=== PATIENT | male | born 1950 | race Caucasian/White ===

== ENCOUNTER → 2017-10-31 | Outpatient (CLI) | payer OTHER | LOC: FIMAGING 08:38 | PROVIDERS: ATTEND Orthopaedic Surgery | DX: M17.11 Unilateral primary osteoarthritis, right knee (principal) ==

== ENCOUNTER 2017-11-10 06:12 | Inpatient (IN) | payer OTHER ==
--- NOTE | 2017-11-10 06:11 | PDHPUP ---
History & Physical Update H&P update statement: This history and physical update is based on an assessment of the patient which was completed after admission or registration (within 24 hours), but prior to the surgery/procedure. H&P update: H&P reviewed & patient examined, no change in patient's condition since H&P completed
[~2017-11-10 06:12] MED LIST: ROPIVACAINE 0.2% 80 MG, EPINEPHrine 0.2 MG, KETOROLAC TROMETHAMINE 30 MG in SYRINGE 0 ML IU ONE; TRANEXAMIC ACID 3,000 MG in NS (SYRINGE) 50 ML IRR ONE
[2017-11-10] MEDS ORDERED: ceFAZolin 2 GM/DEXTROSE 100 ML IV ONE (06:23)
[2017-11-10] MEDS ORDERED: ACETAMINOPHEN 325 MG TAB PO ONE (06:23)
[2017-11-10] MEDS ORDERED: FAMOTIDINE 20 MG TAB PO ONE (06:23)
[2017-11-10] MEDS ORDERED: DEXAMETHASONE 4 MG/ML VIAL IVP ONE (06:23)
[2017-11-10] MEDS ORDERED: LR 1,000 ML IV ONE ×2 (06:25→06:26)
[2017-11-10] MEDS ORDERED: fentaNYL 100 MCG/2 ML INJ ONE (06:49)
[2017-11-10] MEDS ORDERED: LIDOCAINE 2% 100 MG/5 ML SYR ONE (06:49)
[2017-11-10] MEDS ORDERED: MIDAZOLAM 2 MG/2 ML VIAL ONE (06:49)
[2017-11-10] MEDS ORDERED: PROPOFOL/EMULSION 500 MG/50 ML BOTTLE IV ONE (06:51)
[2017-11-10] MEDS ORDERED: TRANEXAMIC ACID 3,000 MG/50 ML BAG IRR ONE (06:57)
--- NOTE | 2017-11-10 06:59 | PDANEPAE ---
ANE History of Present Illness R knee DJD, here for R TKA ANE Past Medical History - Cardiovascular History Hx Hypertension: No Hx Arrhythmias: No Hx Chest Pain: No Hx Coronary Artery / Peripheral Vascular Disease: No Hx CHF / Valvular Disease: No Hx Palpitations: No Cardiovascular History Comment: Heart murmur as child - Pulmonary History Hx COPD: No Hx Asthma/Reactive Airway Disease: No Hx Recent Upper Respiratory Infection: No Hx Oxygen in Use at Home: No Hx Sleep Apnea: No Sleep Apnea Screening Result - Last Documented: Negative Pulmonary History Comment: smokes cigar but does not inhale - Neurologic History Hx Cerebrovascular Accident: No Hx Seizures: No Hx Dementia: No Neurologic History Comment: HX MIGRAINES - Endocrine History Hx Diabetes: No - Renal History Hx Renal Disorders: No - Liver History Hx Hepatic Disorders: No - Neurological & Psychiatric Hx Hx Neurological and Psychiatric Disorders: No - Cancer History Hx Cancer: Yes Cancer History Comment: left restoration Melanoma. stage 1V melanoma - Congenital Disorder History Hx Congenital Disorders: Yes Congenital History Comment: CANCER - GI History Hx Gastrointestinal Disorders: No - Other Health History Other Health History: NONE - Chronic Pain History Chronic Pain: Yes (RECONSTRUCTIVE ANKLE) - Surgical History Prior Surgeries: tonsillectomy, ankle surgery, knee lap, hernia repair in 6th grade, sentinal node biopsy. partial lobectomy ANE Review of Systems Review of Systems: - Exercise capacity METS (RN): 5 METS ANE Patient History - Allergies Allergies/Adverse Reactions: HAYFEVER Allergy (Mild, Uncoded 10/06/17 10:33) WATERY EYES - Home Medications Home Medications: Cholecalciferol Vit D3 [Vitamin D3 (*)] 3,000 units PO DAILY 04/29/15 [Last Taken 10/27/17] FEXOFENADINE HCL 180 mg PO HS 04/29/15 [Last Taken 11/09/17] Ibuprofen [Motrin (*)] 600 mg PO Q8 PRN 04/29/15 [Last Taken 11/03/17] Lovastatin 40 mg PO HS 04/29/15 [Last Taken 11/09/17] Cyanocobalamin (Vitamin B-12) [Vitamin B-12] 1,000 mcg PO DAILY 09/29/17 [Last Taken 10/27/17] Midrin 1 tab PO PRN PRN 09/29/17 [Last Taken 10/14/17] Celebrex 400 mg 11/10/17 [Last Taken 11/10/17 05:30] - NPO status NPO Since - Liquids (Date): 11/10/17 NPO Since - Liquids (Time): 05:00 NPO Since - Solids (Date): 11/09/17 NPO Since - Solids (Time): 21:00 - Smoking Hx Smoking Status: Never smoked - Family Anes Hx Family Hx Anesthesia Complications: Mother very nausea ANE Labs/Vital Signs - Vital Signs Blood Pressure: 113/74 Heart Rate: 58 Respiratory Rate: 14 O2 Sat (%): 94 Height: 182.88 cm Weight: 79.379 kg ANE Physical Exam - Airway Neck exam: FROM Mallampati Score: Class 2 Mouth exam: normal dental/mouth exam - Pulmonary Pulmonary: no respiratory distress - Cardiovascular Cardiovascular: regular rate and rhythym - ASA Status ASA Status: II ANE Anesthesia Plan Anesthesia Plan: GA with mask, spinal
[2017-11-10] MEDS ORDERED: BUPIVACAINE 0.75% 10 ML SDV ONE (07:07)
[2017-11-10] MEDS: VANCOMYCIN 1 GM VIAL ONE ×2 (08:02→08:21)
[2017-11-10] MEDS ORDERED: NALOXONE HCL 0.4 MG/ML INJ IVP PRN (08:05)
[2017-11-10] MEDS ORDERED: HYDROmorphONE/DILAUDID 2 MG/ML INJ IVP PRN (08:05)
[2017-11-10] MEDS ORDERED: LR 500 ML IV PRN (08:05)
[2017-11-10] MEDS ORDERED: PROMETHAZINE HCL 25 MG/ML INJ IVP PRN ×2 (08:05→08:40)
[2017-11-10] MEDS ORDERED: oxyCODONE IR 5 MG TAB PO PRN (08:05)
[2017-11-10] MEDS ORDERED: fentaNYL 100 MCG/2 ML INJ IVP PRN (08:05)
[2017-11-10] MEDS ORDERED: ONDANSETRON 4 MG/2 ML VIAL IVP PRN ×2 (08:05→08:40)
[2017-11-10] MEDS ORDERED: ROPIVACAINE HCL 150 MG/30 ML INJ ONE (08:20)
[2017-11-10] MEDS ORDERED: CYCLOBENZAPRINE 10 MG TAB PO PRN (08:40)
[2017-11-10] MEDS ORDERED: LACTULOSE 20 GM/30 ML UDCUP PO PRN (08:40)
[2017-11-10] MEDS ORDERED: POLYETHYLENE GLYCOL 3350 17 GM PKT PO PRN (08:40)
[2017-11-10] MEDS ORDERED: diphenhydrAMINE 25 MG CAP PO PRN (08:40)
[2017-11-10] MEDS ORDERED: DIPHENOXYLATE/ATROPINE LOMOTIL 1 TAB PO PRN (08:40)
[2017-11-10] MEDS ORDERED: BISACODYL 10 MG SUPP PR PRN (08:40)
[2017-11-10] MEDS ORDERED: MAGNESIUM HYDROXIDE 30 ML UDCUP PO PRN (08:40)
[2017-11-10] MEDS ORDERED: PROMETHAZINE HCL 25 MG SUPPR PR PRN (08:40)
[2017-11-10] MEDS ORDERED: TEMAZEPAM 15 MG CAP PO PRN (08:40)
[2017-11-10] MEDS ORDERED: ONDANSETRON DISINTEGRATING 4 MG TAB PO PRN (08:40)
[2017-11-10] MEDS ORDERED: METOCLOPRAMIDE 10 MG/2 ML VIAL IVP PRN (08:40)
--- NOTE | 2017-11-10 08:40 | POSTOPPROG ---
Post Op Note Date of Operation: 11/10/17 Surgeon: Celio Cerrato Mirror Specialist: elia cerrato Anesthesiologist: dr. hughes Anesthesia: Spinal, Other (Specify) (adductor canal block) Pre-op Diagnosis: right knee OA Post-op Diagnosis: same Indication: right knee pain Procedure: R TKA robot assisted Findings: severe knee OA Inf/Abcess present in the surg proc area at time of surgery?: No EBL: 50-100
[2017-11-10] MEDS ORDERED: LR 1,000 ML IV SCH (09:00)
[2017-11-10] MEDS: oxyCODONE IR 5 MG TAB PO PRN ×2 (10:26→14:58)
[2017-11-10] MEDS: SENNOSIDES/DOCUSATE SODIUM TAB PO SCH ×2 (10:26→21:31)
[2017-11-10] MEDS: ACETAMINOPHEN 325 MG TAB PO SCH ×2 (11:56→18:31)
[2017-11-10] MEDS: ceFAZolin 2 GM/DEXTROSE 100 ML IV SCH ×2 (13:57→21:32)
--- NOTE | 2017-11-10 14:14 | PDMN ---
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
--- NOTE | 2017-11-10 16:18 | POSTANESTH ---
Post Anesthetic Evaluation Cardiovascular Status: Normal, Stable Respiratory Status: Normal, Stable Level of Consciousness/Mental Status: Can Participate in Eval Pain Control: Adequate, Prn Tx Ordered Nausea/Vomiting Control: Adequate, Prn Tx Ordered Complications Possibly Related to Anesthesia: None Noted (Moving both extrem post op, tolerated block in PACU. Met all criteria for DC to floor)
[2017-11-10] MEDS ORDERED: PRAVASTATIN SODIUM 40 MG TAB PO SCH (21:00)
[2017-11-10] MEDS: ASPIRIN 81 MG CHEWABLE TAB PO SCH (21:32)
[2017-11-10] MEDS: FAMOTIDINE 20 MG TAB PO SCH (21:32)
[2017-11-11] MEDS: oxyCODONE IR 5 MG TAB PO PRN
[2017-11-11] MEDS: ACETAMINOPHEN 325 MG TAB PO SCH ×2 (05:23)
[2017-11-11 08:29] VITALS: BP 123/79
[2017-11-11] MEDS: ASPIRIN 81 MG CHEWABLE TAB PO SCH (08:57)
[2017-11-11] MEDS: FAMOTIDINE 20 MG TAB PO SCH (08:57)
[2017-11-11] MEDS: SENNOSIDES/DOCUSATE SODIUM TAB PO SCH (08:58)
--- NOTE | 2017-11-11 10:47 | SOAPPROG ---
SOAP Progress Note Assessment/Plan: Assessment: patient is doing well s/p R TKA pain is well controlled on oral pain meds Anemia: level expected initially postop. asymptomatic VTE ppx: recommend ASA 81 mg BID for 4 weeks D/c planning: d/c to home today once released from PT Plan: 11/11/17 10:45 Subjective: patient is doing well, denies SOB, chest pain and n/v. 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
--- NOTE | 2017-11-12 07:56 | GOP ---
DATE OF OPERATION: 11/10/2017 SURGEON: Matt Raymond MD CORPORATE SCHEDULER: Selena Raymond, RAÚL. ANESTHESIA: Spinal. PREOPERATIVE DIAGNOSIS: Right knee osteoarthritis. POSTOPERATIVE DIAGNOSIS: Right knee osteoarthritis. PROCEDURE PERFORMED: Right total knee arthroplasty with computer navigation, robotic assist. FINDINGS: ESTIMATED BLOOD LOSS: 30 cc. INDICATIONS: The patient is a 66-year-old male with severe and progressive pain and deformity of the right knee unresponsive to conservative care. The risks and benefits of surgical intervention were explained in detail. DESCRIPTION OF PROCEDURE: The patient was brought to the operative room and placed on the table in t he supine position. Spinal anesthesia was induced without difficulty. A pneumatic tourniquet was appl ied about the right proximal thigh, and the leg was prepped and draped in a sterile fashion. The leg song was applied. After exsanguination by elevation the tourniquet was inflated to 250 mmHg. Incision was made anterior medial from the tibial tuberosity to a point 2 cm proximal to the superior pole of the patella. Medial parapatellar arthrotomy was carried out from the superior pole of the pa tella and posteriorly in line with the fibers of the Type II VMO. The medial collateral ligament was elevated and the infrapatellar fat pad was resected. The patella was everted and the articular surface was excised. A 20 mm patellar button was placed. Attention was turned first to the distal aspect of the femur. After exposure of the femur, 2 half pi ns were placed for fixation of the femoral array. In a similar fashion, 2 pins were placed anteromed ial on the tibia for fixation of the tibial array. External land marking and registration of the hip center were performed without difficulty. Internal femoral and tibial registration were carried out without difficulty and the femoral and tibial checkpoints were placed and verified for accuracy. Attention was turned to the femur. The foot print for the size 6 femoral component was cut with the saw using the [employer] robotic system and verified for accuracy against the CT based plan. In a similar f ashion, the saw was used to cut the footprint for the size 7 tibial component using the [employer] system an d verified for accuracy against the CT based plan. The tibial articular surface was excised without d ifficulty, followed by the intercondylar box cut. The knee was extended and the remnants of the medial and lateral meniscus were excised. The posterior capsule was injected with ropivacaine, epinephrine and Toradol. A size 7 mm tibial tray was positio reynaldo. Trial reduction was then carried out. There was excellent range of motion, alignment, and stabi lity using the 9 mm polyethylene. All trials were then removed. The joint was thoroughly irrigated and carefully dried. The press fit c omponents were implanted. The permanent 9 mm polyethylene was placed without difficulty. The tourniquet was deflated and all bleeders were coagulated. The wound was thoroughly irrigated and closed using interrupted sutures of 2-0 Vicryl for the joint capsule. The subcu was closed with 3-0 V icryl and the skin with 4-0 Monocryl. Dermabond and Steri-Strips were applied followed by a compress vj dressing. The patient was then moved from the operating room to the recovery room in good conditi on, having tolerated the procedure well. /[id number]/MODL
== END 2017-11-11 10:57 | disposition home or self-care (01) | DRG 470 ==
LOC: F3N 06:12 → OBSVTOIN 08:42 → F3N 09:35
PROVIDERS: ADMIT Orthopaedic Surgery; ATTEND Orthopaedic Surgery
PROC: 8E0YXBZ Computer Assisted Procedure of Lower Extremity (ICD-10-PCS; principal; 2017-11-10 07:15)
PROC: 0SRC0JZ Replacement of Right Knee Joint with Synthetic Substitute, Open Approach (ICD-10-PCS; principal; 2017-11-10 07:15)
PROC: 8E0YXCZ Robotic Assisted Procedure of Lower Extremity (ICD-10-PCS; principal; 2017-11-10 07:15)
DX: M17.11 Unilateral primary osteoarthritis, right knee (principal); C79.9 Secondary malignant neoplasm of unspecified site; Z85.820 Personal history of malignant melanoma of skin
CPT/HCPCS: 97110-GP; 97116-GP; 97161-GP; G8978-GP-CJ; G8979-GP-CI; G8980-GP-CI; J0171; J0690; J1100; J1885; J2001; J2250; J2704; J2795; J3010; J3370